=== PATIENT | female | born 1970 | race Caucasian/White ===

== ENCOUNTER 2025-04-25 23:23 | Emergency (ER) | payer OTHER, SELFPAY ==
--- NOTE | ~2025-04-25 | CT_ITS ---
EXAMINATION: CT cervical spine wo con DATE: 04/25/2025 23:48 INDICATION: SYNCOPE. FALL. TECHNIQUE: Computed tomography (CT) of the cervical spine was performed without intravenous contrast. Automated exposure control and iterative reconstruction technique were employed. The dose-length pro duct was 417.32 mGy-cm. COMPARISON: None. FINDINGS: Vertebral Body Alignment: Minimal anterolistheses at C2-3 through C4-5, presumably secondary to posit ioning and degenerative changes. Reversal of the normal cervical lordosis, likely positional. Craniocervical and atlantoaxial alignment: Mild degenerative change. Alignment intact. Osseous structures/fracture: No evidence of a lytic or blastic process in the visualized spine. No e vidence of acute fracture. Cervical soft tissues: The paraspinal soft tissues planes are maintained. Degenerative changes: Degenerative changes, without severe neural foraminal or central canal narrowin g. IMPRESSION: No acute fracture or traumatic malalignment in the cervical spine. Reviewed, dictated and finalized at location K.
--- NOTE | ~2025-04-25 | CT_ITS ---
EXAMINATION: CT brain wo con DATE: 04/25/2025 23:47 INDICATION: SYNCOPE. FALL. POSTERIOR RIGHT SIDE HEAD PAIN S/P FALL. . TECHNIQUE: Computed tomography (CT) of the head was performed without intravenous contrast. The mA wa s adjusted according to patient size. Iterative reconstruction technique was employed. The dose-lengt h product was 605.33 mGy-cm. COMPARISON: None. FINDINGS: No acute intracranial hemorrhage or extra-axial fluid collection. No hydrocephalus, mass, or herniation. No acute ischemic infarct. Unremarkable dural venous sinus attenuation. No acute osseous abnormality. Right parietal scalp hematoma/laceration. The aerated spaces are clear. IMPRESSION: No acute intracranial process. Reviewed, dictated and finalized at location K.
[2025-04-25 23:25] VITALS: BP 125/112; PULSE 75; RESP 18; TEMP 35.9; O2SAT 96
--- NOTE | 2025-04-25 23:27 | ED_ITS ---
HPI - Syncope General Chief Complaint: Syncope Stated Complaint: fall Time Seen by Provider: 04/25/25 23:27 Source: patient Mode of arrival: ambulatory Limitations: no limitations History of Present Illness HPI narrative: patient is a 55-year-old female with syncopal episode prior to arrival. It was a ground level fall. She was at the [employer] and has been drinking most of the day alcohol and she passed out at the [employer] this evening. EMS was called but she came on her own to the emergency room. She is with her and he witnessed the event and said she was not having tonic or clonic movements. She urinated and soiled on herself. She was foaming at the mouth. She was unconscious for up to 2 minutes according to the . She bounced her head off the wall or the concrete and has a hematoma formation on the back of her head. MD complaint: loss of consciousness, felt faint and collapsed Onset (ago): minute(s) ( 30) Duration of episode: 2 -: minutes(s) Description of event: incontinence ( urine) and stopped breathing ( breathing was agonal apparently with a [employer] police sergeant on scene but CPR was not required) Prodromal symptoms: none Witnessed: Yes - by Bystander ( ) Context: at rest and other ( patient did have some nausea prior to the event without vomiting as she was headed to outside but leaned over and then collapsed) Injuries sustained associated with event: head ( hematoma) Current symptoms: none and back to baseline History: other ( none) Treatments prior to arrival: none Review of Systems 2 Review of Systems: All systems reviewed & are unremarkable except as noted in HPI and below Constitutional: Constitutional: Reports no additional constitutional complaints Eyes: Eyes: Reports no additional eye complaints ENT: Reports system reviewed and no additional complaints, except as documented Cardiovascular: Cardiovascular: Reports no additional cardiovascular complaints Respiratory: Respiratory: Reports no additional respiratory complaints Gastrointestinal: Gastrointestinal: Reports no additional gastrointestinal complaints Genitourinary: Genitourinary: Reports no additional female genitourinary complaints Musculoskeletal: Musculoskeletal: Reports no additional musculoskeletal complaints Integumentary/Breasts: Skin/Breast: Reports system reviewed and no additional complaints, except as docu Neurologic: Reports system reviewed and no additional complaints, except as documented Psychiatric: Psychiatric: Reports no additional psychiatric complaints Endocrine: Endocrine: Reports no additional endocrine complaints Hematologic/Lymphatic: Hematologic/Lymphatic: Reports no additional hematologic/lymphatic complaints Allergic/Immunologic: Allergic/Immunologic: Reports no additional allergic/immunologic complaints Exam 2 Const: General: healthy appearing Nutritional Appearance: well nourished Orientation/consciousness: patient oriented x3 Limitations: no limitations HENMT: Head: normal to inspection Ears: external ears normal F mallory/Nose/Sinus: Normal external nose present Eyes: Conjunctivae: conjunctivae normal Pupils: Equal, round and reactive pupils present EOM: EOMs intact bilaterally Neck: Neck: normal visual inspection Chest: Chest palpation & inspection: normal inspection of the chest Resp: Effort & Inspection: normal respiratory effort and not labored A uscultation: clear to auscultation bilaterally and no crackles Cardio: Rate: regular rate Rhythm: regular rhythm Heart sounds: no murmurs GI: Inspection: non-distended GI Palp: Yes Soft to palpation and No Tenderness to palpation present (GI) Auscultation: normal bowel sounds : General: Yes bladder normal to palpation Back/Spine/Pelvis: Back: no CVA tenderness Skin: General skin exam: normal color Rashes: no rashes Wounds: wound noted Other: right posterior occipital scalp hematoma Neuro: General: patient oriented x3, moves all extremities, no meningeal signs, no focal motor deficits and CN's II-XI intact bilaterally Cranial nerves: Yes Nystagmus not present Speech: normal speech Gait exam (Neuro): Normal gait present Other: fast exam negative, NIH is 0, GCS is 15 Extrem: General: normal to inspection Psych: Mental Status: mental status grossly normal Affect: normal affect Attitude: cooperative Course Vital Signs Vital signs: Vital Signs Oxygen Delivery Room Air 04/25/25 23:23 Temperature 35.9 C L 04/25/25 23:25 Pulse Rate 61 04/26/25 01:08 Respiratory Rate 18 04/25/25 23:25 Blood Pressure 133/86 04/26/25 01:08 Pulse Oximetry 96 04/25/25 23:25 Oxygen Delivery Room Air 04/25/25 23:25 MDM - Syncope MDM Narrative Medical decision making narrative: patient is a 55-year-old female with a closed head injury and syncopal episode. Questionable seizure. We will do a workup at this time. Lab Data Attestation: I reviewed the patient's lab results. 04/25/25 23:53 04/25/25 23:53 Labs: Lab Results 04/25/25 04/25/25 04/26/25 Range/Units 23:53 23:55 00:48 WBC 7.8 (4.8-10.8) K/mm3 RBC 4.18 L (4.20-5.40) M/mm3 Hgb 13.0 (12.0-15.0) g/dL Hct 38.6 (35.0-49.0) % MCV 92.3 (78.0-102.0) fL MCH 31.1 H (27.0-31.0) pg MCHC 33.7 (32-36) g/dL RDW 12.1 (11.6-14.4) % Plt Count 267 (150-420) K/mm3 MPV 8.5 L (9.2-11.8) fl Immature Gran % (Auto) 0.3 H (0.0-0.0) % Neut % (Auto) 53.1 (50.0-70.0) % Lymph % (Auto) 35.2 (18.0-42.0) % [place] % (Auto) 5.2 (2.0-11.0) % Eos % (Auto) 5.3 (1.0-6.0) % Baso % (Auto) 0.9 (0.0-1.0) % Lymph # (Auto) 2.73 (1.10-4.50) K/mm3 [place] # (Auto) 0.40 (0.10-0.90) K/mm3 Eos # (Auto) 0.41 (0.02-0.50) K/mm3 Baso # (Auto) 0.07 (0.00-0.10) K/mm3 Abs Immat Gran (auto) 0.02 H (0.00-0.00) K/mm3 Absolute Neuts (auto) 4.13 (1.70-7.20) K/mm3 Absolute Nucleated RBC 0.00 (0.00-0.00) K/mm3 Nucleated RBC % 0.0 (0-0.0) % Sodium 133 L (137-145) mmol/L Potassium 3.5 (3.4-5.0) mmol/L Chloride 100 (98-107) mmol/L Carbon Dioxide 24 (22-30) mmol/L Anion Gap 9 (4-12) mmol/L BUN 7 (7-17) mg/dL Creatinine 0.65 L (0.7-1.0) mg/dL Estim Creat Clear Calc 109 ml/min Estimated GFR > 60 (59 - ) Glucose 100 (65-110) mg/dL POC Capillary Glucose 105 (65-105) mg/dl Calculated Osmolality 274 L (285-295) mOsm/kg Calcium 8.7 (8.4-10.2) mg/dL Magnesium 1.7 (1.6-2.3) mg/dL Total Bilirubin 0.5 (0.2-1.3) mg/dL AST 34 (14-36) U/L ALT 27 (6-35) U/L Alkaline Phosphatase 57 (38-126) U/L Total Creatine Kinase 43 (30-135) U/L Troponin I < 0.012 (0.000-0.034) ng/mL Total Protein 7.4 (6.3-8.2) g/dL Albumin 4.3 (3.5-5.1) g/dL Urine Color Light yellow (Yellow) Urine Appearance Clear (Clear) Urine pH 5.5 (5.0-8.0) Ur Specific [place] <= 1.005 L (1.010-1.020) Urine Protein Negative (Negative) Urine Glucose (UA) Negative (Negative) Urine Ketones Negative (Negative) Ur Blood (Man) Negative (Negative) Urine Nitrate Negative (Negative) Urine Bilirubin Negative (Negative) Urine Urobilinogen 0.2 (0.2-1.0) mg/dL Leukocyte Esterase Rfl Negative (Negative) NILESH/UL Urine Opiates Screen Negative (Negative) Urine Methadone Screen Negative (Negative) Ur Barbiturates Screen Negative (Negative) Ur Phencyclidine Scrn Negative (Negative) Ur Amphetamine Screen Negative (Negative) U Benzodiazepines Scrn Negative (Negative) Urine Cocaine Screen Negative (Negative) U Cannabinoids Screen Negative (Negative) Ethyl Alcohol 230 (<10) mg/dL Imaging Data Attestation: I personally reviewed and interpreted this imaging study as follows: Radiologist's impression: CT scan of the head is negative for acute process CT scan of the cervical spine is negative for acute process ECG Data EKG #1: Attestation: I personally reviewed and interpreted this ECG as follows: ECG completion date: 04/26/25 ECG completion time: 00:00 EKG Interpretation: bradycardia, sinus rhythm, no ectopy, non-specific ST changes, normal QRS, normal QT and NL axis Discharge Plan Discharge Clinical Impression: Vasovagal syncope Head injury Qualifiers: Encounter type: initial encounter Qualified Code(s): S09.90XA - Unspecified injury of head, initial encounter Alcohol intoxication Qualifiers: Complication of substance-induced condition: with unspecified complication Q ualified Code(s): F10.929 - Alcohol use, unspecified with intoxication, unspecified Patient Disposition: Home Condition: Stable Instructions: Syncope (ED), Head Injury (ED) Additional Instructions: please follow-up with primary doctor in the next week. Your primary doctor can send you to Neurology versus cardiology if this continues to occur over time. Patient Language: Urdu Follow-up/Referrals: Bella Rg MD [Primary Care Provider] - Time of Disposition: 01:06
--- NOTE | 2025-04-25 23:38 | ECG_ITS ---
Test Date: 2025-04-25 23:59:43 Measurements Intervals [place] Rate: 58 P: 42 [place]: 202 QRS: 1 QRSD: 122 T: 12 QT: 455 QTc: 449 Interpretive Statements SINUS BRADYCARDIA WITH SINUS ARRHYTHMIA INCOMPLETE RIGHT BUNDLE BRANCH BLOCK BORDERLINE R WAVE PROGRESSION, ANTERIOR LEADS BORDERLINE T WAVE ABNORMALITY- ANT/INF LEADS BORDERLINE ECG No previous ECG available for comparison Electronically Signed On 04-26-2025 06:25:10 CDT by Hakan Garcia D.O.
[2025-04-25 23:57] LABS: Glucose Point of Care 105 mg/dl (65-105)
[2025-04-25 23:58] LABS: Basophils Absolute Auto 0.07 K/mm3 (0.00-0.10); Basophils Percent Auto 0.9 % (0.0-1.0); Eosinophils Absolute Auto 0.41 K/mm3 (0.02-0.50); Eosinophils Percent Auto 5.3 % (1.0-6.0); Hematocrit 38.6 % (35.0-49.0); Immature Granulocyte Absolute 0.02 K/mm3 (0.00-0.00); Immature Granulocyte Percent A 0.3 % (0.0-0.0); Lymphocytes Absolute Auto 2.73 K/mm3 (1.10-4.50); Lymphocytes Percent Auto 35.2 % (18.0-42.0); Mean Corpuscular HGB Conc 33.7 g/dL (32-36); Mean Corpuscular Hemoglobin 31.1 pg (27.0-31.0); Mean Corpuscular Volume 92.3 fL (78.0-102.0); Mean Platelet Volume 8.5 fl (9.2-11.8); Monocytes Percent Auto 5.2 % (2.0-11.0); Neutrophils Absolute Auto 4.13 K/mm3 (1.70-7.20); Neutrophils Percent Auto 53.1 % (50.0-70.0); Platelet Count Result 267 K/mm3 (150-420); Red Blood Count 4.18 M/mm3 (4.20-5.40); Red Cell Distribution Width 12.1 % (11.6-14.4); White Blood Count 7.8 K/mm3 (4.8-10.8)
--- NOTE | 2025-04-26 | PC.NURSE ---
pt aware urine specimen is needed. pt unable to go at this time
[2025-04-26 00:07] LABS: Alanine Aminotransferase 27 U/L (6-35); Albumin Level 4.3 g/dL (3.5-5.1); Alkaline Phosphatase 57 U/L (38-126); Anion Gap 9 mmol/L (4-12); Aspartate Amino Transferase 34 U/L (14-36); Bilirubin,Total 0.5 mg/dL (0.2-1.3); Blood Urea Nitrogen 7 mg/dL (7-17); Calcium 8.7 mg/dL (8.4-10.2); Carbon Dioxide 24 mmol/L (22-30); Chloride 100 mmol/L (98-107); Estimated CRCL calculation 109 ml/min; Estimated Glomerular Filt Rate > 60; Glucose 100 mg/dL (65-110); Osmolality Calculated 274 mOsm/kg (285-295); Potassium 3.5 mmol/L (3.4-5.0); Sodium 133 mmol/L (137-145); Total Protein 7.4 g/dL (6.3-8.2)
[2025-04-26 00:12] LABS: Magnesium 1.7 mg/dL (1.6-2.3)
[2025-04-26 00:17] LABS: Ethanol 230 mg/dL (<10)
[2025-04-26 00:18] LABS: Creatine Kinase 43 U/L (30-135)
[2025-04-26 00:25] LABS: Troponin I < 0.012 ng/mL (0.000-0.034)
--- NOTE | 2025-04-26 00:44 | PC.NURSE ---
pt ambulated to bathroom for urine specimen
[2025-04-26 00:56] LABS: Add Urine Microscopic? NO; Appearance Urine Clear (Clear); Bilirubin Urine Negative (Negative); Blood Urine Negative (Negative); Color Urine Light Yellow (Yellow); Glucose Urine UA Negative (Negative); Ketones Urine Negative (Negative); Leukocyte Esterase Ur Negative LEU/UL (Negative); Nitrate Urine Negative (Negative); Protein Urine Negative (Negative); Specific Grav Ur <= 1.005 (1.010-1.020); Urobilinogen Urine 0.2 mg/dL (0.2-1.0); pH Urine 5.5 (5.0-8.0)
[2025-04-26 01:08] VITALS: BP 133/86; PULSE 61
[2025-04-26 01:12] LABS: Amphetamine Screen Urine Negative (Negative); Barbiturate Screen Urine Negative (Negative); Benzodiazepines Screen Urine Negative (Negative); Cannabinoid Screen Urine Negative (Negative); Cocaine Screen Urine Negative (Negative); Methadone Screen Urine Negative (Negative); Opiate Screen Urine Negative (Negative); Phencyclidine Screen Urine Negative (Negative)
== END 2025-04-26 01:22 | disposition home or self-care (01) ==
PROVIDERS: Emergency Provider Emergency Medicine; PCP Internal Medicine
DX: R55 Syncope and collapse (principal); F10.929 Alcohol use, unspecified with intoxication, unspecified; W18.39XA Other fall on same level, initial encounter
CPT/HCPCS: 36415; 70450; 72125; 80053; 80307; 81003; 82077; 82550; 82948; 83735; 84484; 85025; 93005; 99284